=== PATIENT | female | born 1990 | race Caucasian/White ===

== ENCOUNTER → 2020-03-05 | Outpatient (CLI) | payer SELFPAY ==
[2020-03-11 00:41] LABS: HPV Reflexed? NOT INDICATED
== END | disposition home or self-care (01) ==
LOC: LABSPEC 13:44
PROVIDERS: Referring Provider Obstetrics & Gynecology; Visit Provider Obstetrics & Gynecology
DX: Z12.4 Encounter for screening for malignant neoplasm of cervix (principal)
CPT/HCPCS: 88175; G0145

== ENCOUNTER → 2021-07-29 | Outpatient (CLI) | payer SELFPAY ==
--- NOTE | 2021-07-29 11:45 | EMB_PTH ---
PATIENT: BAY BOURNE LOC: [facility] U#:[id number] AGE/SX: 31/F ROOM: RE07/29/[address]: Dr. Arik Roman MD : 1990 BED: DIS: 07/29/2021 SPEC #: [id number] RECD: 07/29/21 12:58 STATUS: ESPERANZA NIA #: [id number] MARIA ELENA: 07/29/21 11:[address]: Arik Roman DEPT: SURGICAL PATHOLOGY RECD BY: Keri Sun Tissues: Endometrium, NOS Procedures: Surgery Specimen Level IV HEADER OPERATION: Endometrial biopsy PRE-OP DIAGNOSIS: N92.4 TISSUE SUBMITTED: Endometrial biopsy MICROSCOPIC DIAGNOSIS Endometrial biopsy: Proliferative endometrium. WHIT:tammy 07/30/2021 MICROSCOPIC DESCRIPTION Slides are reviewed. GROSS DESCRIPTION Received in fixative is one container labeled with the patient's name and designated EM biopsy. The specimen consists of multiple irregular fragments of chen-pink soft tissue mixed with mucoid tissue that in aggregate measure 2.5 x 0.5 x 0.1 cm. The specimen is totally submitted in one cassette. / SJ:tammy 07/29/21 TC:4 CPT: 39760
[2021-08-05 16:15] LABS: HPV Reflexed? NOT INDICATED
== END | disposition home or self-care (01) ==
LOC: LABSPEC 12:45
PROVIDERS: Visit Provider Obstetrics & Gynecology
DX: N92.4 Excessive bleeding in the premenopausal period (principal); Z12.4 Encounter for screening for malignant neoplasm of cervix
CPT/HCPCS: 88175; 88305; G0145

== ENCOUNTER 2021-10-12 07:14 | Day surgery (SDC) | payer SELFPAY ==
[2021-10-07 13:45] LABS: Hematocrit 39.3 % (37-47); Mean Corp Hgb Conc 33.1 g/dL (32-36); Mean Corpuscular Hgb 29.3 pg (27.0-32.0); Mean Corpuscular Volume 88.7 fL (81-99); Mean Platelet Vol. 10.3 fl (6.2-12.0); Platelet Count 276 K/mm3 (150-450); RBC Distribution Width CV 12.7 % (11.6-14.6); RBC Distribution Width SD 41.6 fl (35.1-43.9); Red Blood Count 4.43 M/mm3 (4.2-5.4); White Blood Count 6.4 K/mm3 (4.4-11.0)
[2021-10-07 13:59] LABS: Partial Thromboplast Time 28.2 Seconds (24.1-36.2)
[2021-10-07 14:21] LABS: Thyroid Stim Hormone (TSH) 0.91 uIU/mL (0.358-3.74)
--- NOTE | 2021-10-10 07:59 | HP.PCM_ITS ---
History and Physical Date of Admission: 10/12/21 Surgical History and Physical Dora Crow, a 31 year old female 2 0 0 0 2, presents for HTA, Hysteroscopy and D and C on October 12, 2021. -- Heavy and Irregular Menses -- Dora presents as referral from Michelle Urena NP for history of Prolong Irregular Menses, and Hormonal changes. 30 y.o. G 2 P 2 non-smoker with history of Regular Menses(monthly) but being irregular with flow, as she will start a cycle, bleed x 5 - 7 days, stop for 3 days, then start back again for another 5 days or more. She states some days are heavy with need to change a tampon q 2 hours.U/S and EMBx OK. MEDICATIONS HISTORY: ALLERGIES: No Known Allergies Infections - Chicken pox Illnesses - no serious past illnesses Accidents - None Hospitalizations - see surgery Review of Systems: GENERAL - Denies fever, or chills SKIN - Denies skin changes EYES - Denies visual changes EARS - Denies difficulty hearing NOSE - Denies nasal congestion or bleeding MOUTH - Denies sore throat or difficulty swallowing NECK - Denies pain or swelling RESPIRATORY - Denies shortness of breath or wheezing CARDIOVASCULAR - Denies palpitations or chest pain GASTROINTESTINAL - Denies nausea, vomiting, diarrhea, constipation GENITOURINARY - Denies dysuria, frequency of urination, incontinence of urine MUSCULOSKELETAL - Denies joint or muscle pain NEUROLOGICAL - Denies localized numbness or weakness PSYCHIATRIC - Denies depression or anxiety ENDOCRINE - Denies heat or cold intolerance, weight loss or gain HEMATO-IMMUNOLOGIC - Denies excesive bleeding with cuts SOCIAL HISTORY: Alcohol Use - drinks occasionally Smoking - Never Diet - no special diet Lifestyle - moderate stress lifestyle and Exercise - active work Seat Belt Use - always Employer - Cleaning Job Description - cleaning Illicit Drug Use - None Sexual Activity - Hours Worked - 14 Spouse-Sig Other Name - Chao Crow . Spouse-Sig Other Occupation - [employer] Children Name(s) - 2 childrens Control - Prior Tubal FAMILY HISTORY: MENSTRUAL HISTORY: LMP Known?- DefiniteAmount/Duration - 7 to 10 days, Regularity - Irregular, Frequency - variable days, LMP - 10/02/21, Age Onset Menarche - 14 PAST PREGNANCIES: Total Pregnancies - 2; Full Term Pregnancies - 2; Premature - 0; Abortions, Induced - 0; Abortions, Spontaneous - 0; Ectopics - 0; Multiple Births - 0; Living Children - 2 SURGICAL HISTORY: 1. cholecystectomy, 2016 ; James Marx 2. 11/06/2014 ; Dr. Rodriguez 3. 03/11/2017 and Tubal ; Dr. Rodriguez PHYSICAL EXAM BP- 100/58 Sitting, Right arm, regular cuff Weight- 184.6 lbs Height- 62 inch BMI:33.8 CONSTITUTIONAL - NAD, well nourished, and well developed SKIN - No rash, lesions, or ulcers HEENT - Normocephalic, PERRLA, EOMI NECK - No nodes, no nuchal rigidity and thyroid normal size and texture LYMPH NODES - Palpation of lymph nodes in neck and groins within normal limits LUNGS - CTA x2 without wheezes, crackles or rales CARDIAC - Regular rate and rhythm without rubs, murmurs, or gallops ABDOMEN - Without hepatosplenomegaly, distention, masses, rebound, or guarding; normal bowel sounds; no hernias EXTREMITIES - No edema or calf tenderness NEUROLOGICAL - Cranial nerves II-XII grossly intact PSYCHIATRIC - A and O to time, place, person, mood and affect External Genitial Vagina - non-tender without lesions Urethra/Urethral Meatus - non-tender Bladder - non-tender Vagina - vaginal workman are pink and moist without loss of rugae and no evidence of atropy Cervix - without cervical motion tenderness and has normal size and features without evident lesions Uterus - 5-6 cm in size, mobile and nontender Adnexa - clear without massess or tenderness ASSESSMENT/PLAN: 1. Irregular Menstrual Cycle and Premenopausal Menorrhagia Likely from adenomyosis. Discussed options for treatment and pt stanislav res HTA. H/S and D and C. Discussed RBAs and all questions answered.
[2021-10-12] VITALS (7 sets, daily range): BP systolic 98–130; BP diastolic 59–91; PULSE 65–110; RESP 15–18; TEMP 36.2–36.7; O2SAT 98–100; BMI 33.0
--- NOTE | 2021-10-12 | EMB_PTH ---
PATIENT: BAY BOURNE LOC: [facility] – [place] U#:[id number] AGE/SX: 31/F ROOM: RE10/12/[address]: Dr. Arik Roamn MD : 1990 BED: DIS: 10/12/2021 SPEC #: [id number] RECD: 10/12/21 10:11 STATUS: ESPERANZA NIA #: [id number] MARIA ELENA: 10/12/21 00:[address]: Arik Roman DEPT: SURGICAL PATHOLOGY RECD BY: Deandre Ma ENTERED: 10/12/21 11:29 SP TYPE: ENDOM BX/C NELSON DR: Dr. Arik Pabon MD Tissues: Endometrium, NOS Procedures: Surgery Specimen Level IV HEADER OPERATION: Hysteroscopy, D & C hydroablation PRE-OP DIAGNOSIS: Irregular menstrual cycle and premenopausal menorrhagia TISSUE SUBMITTED: Endometrial curettings MICROSCOPIC DIAGNOSIS Endometrial curettings: Proliferative endometrium. SJ:tammy 10/13/2021 MICROSCOPIC DESCRIPTION Slides are reviewed. GROSS DESCRIPTION Received in fixative is one container labeled with the patient's name and designated endometrial curettings. The specimen consists of multiple fragments of hemorrhagic soft tissue that in aggregate measure 3 x 2.5 x 0.3 cm. The specimen is totally submitted in one cassette. / SJ:tammy 10/12/2021 TC:3 CPT: 62892
[2021-10-12] MEDS: Lactated Ringers 1,000 ML 15 ML IV (07:30)
[2021-10-12 08:07] LABS: Internal QC Validated? YES +Cl - CLEAR BKGD; Pregnancy, Urine Negative Negative
[2021-10-12] MEDS: Cefotetan 2 GM in 0.9% NS 100 ML IV (08:54)
[2021-10-12] MEDS: Oxytocin 10 UNITS/ML Vial (09:13)
--- NOTE | 2021-10-12 09:36 | OP.PCM_ITS ---
Report of Operation Date of Procedure: 10/12/21 Pre-Operative Diagnosis: Menorrhagia Post-Operative Diagnosis: Menorrhagia Surgery/Procedure Performed:: Diagnostic Hysteroscopy and Dilation and Curettage, Hydrothermal Ablation Description of Surgical Findings:: 8 cm endometrial cavity without polyps or fibroids present. Surgeon: Arik Roman Type of Anesthesia: General (LMA) Anesthesiologist: Belkis Isaac Specimen's removed: Endometrial curettings Estimated Blood Loss (mL): Minimal Fluids Replaced: Crystalloid Description of Procedure: Surgeon: Arik Roman MD, FACOG Indication: This is a 31 year old patient who has been having problems with extremely heavy menses. Conservative measures have not been helpful. Endometrial sampling was benign and pelvic ultrasound showed that ablation may be helpful. Pt has been counseled regarding the risks, benefits and alternatives of this procedure and all questions answered. She understands that only about half of patients will have amenorrhea after this procedure. Procedure: Patient taken to the operating room where after induction of general anesthesia the patient was prepped and draped in the usual sterile fashion. Bladder was drained of urine with a catheter. Anterior cervix grasped and cervix was dilated to about 17 Icelandic size. Hysteroscopic hydrothermal ablation (HTA) unit was place in the cervix and the above findings were noted. HTA unit was removed and the uterus was gently curretted removing all contents. An HTA ablation cycle was then carried out at about 90 degrees Centigrade for 10 minutes with virtually no fluid loss during the procedure. After an appropriate cool down the HTA unit was removed with minimal bleeding noted. The patient tolerated the procedure well and was taken to the recovery room in satisfactory condition. Sponge, instruments and needle counts were all correct. There were no apparent complications of the surgery. Cefotetan 2 gms IV was given prior to the procedure. Grafts/Implants Used: None Complications None Admit VTE Documentation VTE Present on Admission: Yes VTE Mechan Device Prophylaxis: SCD's
--- NOTE | 2021-10-12 09:38 | PCM.DC ---
Discharge Instructions Diet Discharge Diet: No restrictions Activity Discharge Activity: Return to Normal Activity, May Shower and May Take a Tub Bath May resume sexual activity in: 3 weeks Additional Activity Instructions:: Nothing in the vagina for 3-4 weeks please. Use Ibuprophen 800 mg orally every 8 hours as needed for pain. Can also add Tylenol 1000 mg every 8 hours if needed for pain. If Ibuprophen and Tylenol are not effective then use the Oxycodone but keep in mind it can cause serious constipation issues. Drink lots of water. Call if bleeding more than a pad per hour. Clear to brownish discharge will last for about 3 weeks. Dressing / Incision Call your doctor if you observe: Fever of 101 or Higher, Inability to urinate, Inability to have a bowel movement and Using more than 1 pad per hour Follow Up Care Please Follow Up With: Arik Roman MD When: 3 to 4 weeks Test Results: Test results from this visit will be discussed in further detail at your follow-up appointment, if applicable. Discharge Plan Admission Primary Reason for Your Visit: Endometrial Ablation Attending Provider: Arik Roman Primary Care Provider: Arik Pabon Discharge Orders/Prescriptions Prescriptions: New oxycodone 5 mg capsule 5 mg PO Q6H PRN (Reason: pain (scale score 7-10)) 7 Days Qty: 7 RF: 0 Continued magnesium 500 mg Tablet 15 mg PO DAILY RF: 0 vitamin B complex Tablet Extended Release 1 tab PO DAILY RF: 0 famotidine [Pepcid AC] 20 mg Tablet 20 mg PO DAILY RF: 0 zinc 25 mg Tablet 25 mg PO DAILY RF: 0 loratadine [Claritin] 10 mg Tablet 10 mg PO DAILY PRN (Reason: seasonal allergies) RF: 0 cholecalciferol (vitamin D3) [Vitamin D3] 125 mcg (5,000 unit) Tablet 125 mcg PO DAILY RF: 0 yxkdcmxv-fayhavypeb-cprx-hops 490 mg Capsule 3 cap PO DAILY RF: 0 Referrals / Follow Up: Arik Pabon MD [Primary Care Provider] - Disposition Disposition (needs filled in before D/C Order can be placed): Home, Self Care
[2021-10-12] MEDS: Acetaminophen 500 MG Tablet 1000 MG PO (10:39)
[2021-10-12] MEDS: Lactated Ringers 1,000 ML 100 ML IV (11:19)
[2021-10-12] MEDS: oxyCODONE 5 MG Tablet PO (12:11)
== END 2021-10-12 23:59 | disposition home or self-care (01) ==
LOC: SDC 07:20 → AC 07:21
PROVIDERS: Anesthesiology; PCP Family Medicine; Referring Provider Obstetrics & Gynecology; Visit Provider Obstetrics & Gynecology
PROC: 0U5B8ZZ Destruction of Endometrium, Via Natural or Artificial Opening Endoscopic (ICD-10-PCS; CPT 58563; principal; 2021-10-12 08:40)
DX: N92.0 Excessive and frequent menstruation with regular cycle (principal); N92.4 Excessive bleeding in the premenopausal period; K21.9 Gastro-esophageal reflux disease without esophagitis
CPT/HCPCS: 00940; 58558; 36415; 81025; 84443; 85027; 85610; 85730; 86850; 86900; 86901; 87426; 88305; C9803; J7120; J2405

== ENCOUNTER → 2022-09-08 | Outpatient (CLI) | payer SELFPAY ==
[2022-09-13 22:11] LABS: HPV APTIMA, High Risk Negative (Negative)
== END | disposition home or self-care (01) ==
LOC: WOBLAB 13:34
PROVIDERS: PCP Family Medicine; Visit Provider Obstetrics & Gynecology
DX: Z12.4 Encounter for screening for malignant neoplasm of cervix (principal)
CPT/HCPCS: 87624; 88175; G0145

== ENCOUNTER → 2023-12-08 | Outpatient (CLI) | payer SELFPAY | END | disposition home or self-care (01) | LOC: LABSPEC 11:53 | PROVIDERS: PCP Family Medicine; Referring Provider Nurse Practitioner Women's Health; Visit Provider Nurse Practitioner Women's Health | DX: N89.8 Other specified noninflammatory disorders of vagina (principal) | CPT/HCPCS: 87070; 87186; 87205 ==

== ENCOUNTER 2023-12-27 15:29 | Observation (INO) | payer SELFPAY ==
[2023-12-21 10:31] LABS: Absolute Lymphocyte Count 2.62 X10^3/uL (0.83-4.51); Absolute Neutrophil Count 4.1 X10^3/uL (2.0-7.7); Basophil# 0.03 X10^3/uL; Basophil% 0.4 % (0-1); Eosinophils% 1.4 % (0-5); Hematocrit 41.3 % (37-47); Hemoglobin 13.3 g/dL (12.0-15.0); Lymphocyte # 2.62 X10^3/ul (0.83-4.51); Lymphocyte % 35.9 % (19-41); Mean Corp Hgb Conc 32.2 g/dL (32-36); Mean Corpuscular Hgb 27.9 pg (27.0-32.0); Mean Corpuscular Volume 86.6 fL (81-99); Mean Platelet Vol. 10.4 fl (6.2-12.0); Monocyte# 0.41 X10^3/uL; Monocyte% 5.6 % (0-10); NRBC Flagged by Analyzer 0 % (0-5); Neutrophil # 4.13 X10^3/uL (2.7-7.7); Neutrophil % 56.6 % (47-70); Platelet Count 273 K/mm3 (150-450); RBC Distribution Width CV 13.2 % (11.6-14.6); RBC Distribution Width SD 41.4 fl (35.1-43.9); Red Blood Count 4.77 M/mm3 (4.2-5.4); White Blood Count 7.3 K/mm3 (4.4-11.0)
[2023-12-21 11:08] LABS: Magnesium 2.1 mg/dL (1.6-2.6)
[2023-12-21 11:17] LABS: Thyroid Stim Hormone (TSH) 0.88 uIU/mL (0.358-3.74)
[2023-12-27] VITALS (15 sets, daily range): BP systolic 91–126; BP diastolic 47–73; PULSE 56–85; RESP 15–16; TEMP 36.5–36.9; O2SAT 98–100; BMI 35.1
--- NOTE | 2023-12-27 08:48 | PCM.HP.BLA ---
History and Physical ntake Vital Signs 12/07/2409:40 12/08/2412:18 12/08/2412:20 Height 5 ft 2 in 5 ft 2 in 5 ft 2 in Weight: 192 lb 4 oz 193 lb BMI 35.2 35.3 BP 124/80 H 122/76 H Intake Visit Reasons: [facility] Maintenance Analyst Required: No Is patient in pain?: No Allergies No Known Allergies Allergy (Verified 12/09/23 13:19) Medications cholecalciferol (vitamin D3) 125 mcg (5,000 unit) tablet (Vitamin D3) 125 mcg PO DAILY 10/05/21 [History Confirmed 12/09/23] collagen-hyaluronic ctbb-xzmgxdkwyl-ytbd extract 490 mg capsule 3 cap PO DAILY 10/05/21 [History Confirmed 12/09/23] famotidine 20 mg tablet (Pepcid AC) 20 mg PO DAILY 10/05/21 [History Confirmed 12/09/23] loratadine 10 mg tablet (Claritin) 10 mg PO DAILY PRN seasonal allergies 10/05/21 [History Confirmed 12/09/23] magnesium 500 mg tablet 15 mg PO DAILY 10/05/21 [History Confirmed 12/09/23] vitamin B complex 1 tab PO DAILY 10/05/21 [History Confirmed 12/09/23] zinc 25 mg tablet 25 mg PO DAILY 10/05/21 [History Confirmed 12/09/23] Post menopausal: No Patient : No : No [facility] Medical History Gastric reflux Non-smoker Seasonal allergies Shortness of breath on exertion Wears glasses Surgical History History of History of cholecystectomy S/P endometrial ablation Social History household members: spouse number of children: 2 current occupation: [employer] Smoking Status: Never smoker alcohol intake: never substance use type: does not use seatbelt use: always do you feel safe at home: Yes additional social history: - ChaoDonovan Landry benavides [facility] Details: BAY BOURNE is a 33 year old who presents for consultation. she has tried metformin and ocp prior ot an ablation, then had an ablation 2 years ago, she has had recurrent bleeding and pain. she denies any pelvic pain or pressure, dyspareunia. cycles are eveyr 28-30 and lasting a week increasing in amount again. nl thyroid testing in the past. declines EMB today. US done at PCP office. referral from [facility]. Female Reproductive History Menopausal Symptoms: No night sweats History 2 Elective abortions Hx Para 2 Spontaneous abortions Hx # Term Pregnancies Ectopic pregnancies Hx # Pregnancies Multiple births # of living children 2 Past Pregnancies Del. Date Name GA/Weeks Outcome Route Bth Weight Gen Labor Lgth Anesthesia Del Locatn Provider FOB Unknown Ramírez 2014 Unknown Michael 2016 ROS Const Constitutional: Denies fatigue, night sweats, weight gain or weight loss ENT ENT: Reports system reviewed and no additional complaints, except as documented Cardio Card: Denies chest pain Resp Resp: Denies cough or dyspnea GI GI: Reports as per HPI; Denies abdominal pain, constipation, nausea or vomiting : Denies nipple discharge, urinary frequency, urinary incontinence, urinary hesitancy, urinary urgency, vaginal discharge, vaginal dryness, vaginal odor or vaginal pruritus Musc Musc: Denies arthralgias, back pain or muscle weakness Skin Skin/Breast: Denies alopecia, change in hair, dry skin, breast mass, breast pain, breast skin changes or nipple discharge Neuro Neuro: Reports system reviewed and no additional complaints, except as documented Psych Psych: Reports system reviewed and no additional complaints, except as documented Endo Endo: Denies cold intolerance, excessive sweating, heat intolerance or polydipsia Will/Lymph Hematologic/Lymphatic: Denies easy bleeding, Denies easy bruising and Denies lymphadenopathy Exam Const General: cooperative, healthy appearing, comfortable and no acute distress Orientation: alert [facility] Head: normal to inspection and normocephalic Ears: hearing grossly normal bilaterally and external ears normal Nose: external nose normal and nares normal Face and sinus: normal facial exam Neck Neck: normal visual inspection and no lymphadenopathy Thyroid: thyroid normal Chest Chest palpation & inspection: normal inspection of the chest Resp Effort & Inspection: normal respiratory effort Auscultation: clear to auscultation bilaterally Cardio Rate: regular rate Rhythm: regular rhythm Heart Sounds: S1 normal and S2 normal GI Inspection: normal to inspection and non-distended Palpation: soft and no hepatosplenomegaly Musc Other: gross motor intact no deficits, full bilateral strength Skin General: no rashes or lesions noted Neuro General: patient alert, patient awake, moves all extremities and no focal motor deficits Motor: muscle tone normal throughout Extrem General: normal to inspection and no pedal edema Psych Appearance: grossly normal Mental Status: mental status grossly normal Affect: normal affect Speech and Movement: speech and movement normal Coding Level of Care Code Off vis,est,level 4 Diagnoses Abnormal uterine bleeding (AUB) N93.9 Assessment and Plan Assessment and Plan (1) Abnormal uterine bleeding (AUB): Status: Acute Comment: failed OCP, IUD and ablation. Plan LAVHBS declined EMB. Orders: Orders CBC-Complete Blood Cnt No Diff Today N93.9 - Abnormal uterine and vaginal bleeding, unspecified Thyroid Stim Hormone (TSH) Today N93.9 - Abnormal uterine and vaginal bleeding, unspecified Type & Screen - PAT ONLY Today N93.9 - Abnormal uterine and vaginal bleeding, unspecified Plan After discussing the patient's diagnosis and treatment plan options, patient wishes to proceed with surgical management. I have discussed with the patient the risks, benefits, and alternatives of the procedure which include but are not limited to risks of anesthesia, bleeding, infection, possible damage to bowel, bladder, or surrounding vasculature which could lead to additional surgery to evaluate any complications. Patient agrees to procedure and wishes to proceed. ACOG/uptodate references given for additional information regarding procedure. UPDATE- I have seen the patient and performed any clinically relevant updates to the history and physical exam. Brooke Walters MD
[2023-12-27 11:09] LABS: Internal QC Validated? YES +Cl - CLEAR BKGD; Pregnancy, Urine Negative Negative
[2023-12-27] MEDS: Magnesium 1 GM over 15 mins IV (11:18)
[2023-12-27] MEDS: Lactated Ringers 1,000 ML 40 ML IV (11:18)
[2023-12-27] MEDS: Enoxaparin 40 MG/0.4 ML Syringe SC (11:20)
[2023-12-27] MEDS: Scopolamine 1mg/72hr Patch 1 PATCH TD (11:20)
[2023-12-27] MEDS: Acetaminophen 500 MG Tablet 1000 MG PO ×2 (11:21→16:52)
[2023-12-27] MEDS: Phenazopyridine 95 MG Tablet 190 MG PO (11:21)
[2023-12-27] MEDS: Gabapentin 600 MG Tablet PO (11:22)
[2023-12-27] MEDS: dexAMETHasone 4 MG/ML Vial 8 MG IV (11:22)
[2023-12-27] MEDS: Celecoxib 200 MG Capsule 400 MG PO (11:22)
[2023-12-27 11:52] LABS: Bedside Glucose 77 mg/dL (74-106)
[2023-12-27] MEDS: Cefazolin 2 GM in 0.9% Normal Saline (100mL Bag) 100 ML IV (12:31)
--- NOTE | 2023-12-27 12:50 | HYST_PTH ---
PATIENT: BAY BOURNE LOC: [facility] U#:[id number] AGE/SX: 33/F ROOM: MS313 RE12/27/[address]: Dr. Brooke Walters MD : 1990 BED: 1 DIS: 12/28/2023 SPEC #: [id number] RECD: 12/27/23 16:02 STATUS: ESPERANZA KRAMER #: [id number] MARIA ELENA: 12/27/23 12:[address]: Brooke Walters DEPT: SURGICAL PATHOLOGY RECD BY: Keri Sun ENTERED: 12/28/23 09:49 SP TYPE: HYSTERECT OTHR DR: Dr. Arik Pabon MD Tissues: Uterus, NOS Procedures: Surgery Specimen Level V HEADER OPERATION: ERAS, hysterectomy, LAVH, bilateral salpingectomy PRE-OP DIAGNOSIS: Abnormal uterine bleeding TISSUE SUBMITTED: Uterus, cervix, bilateral fallopian tubes MICROSCOPIC DIAGNOSIS Uterus, hysterectomy: Cervix - Squamous metaplasia and mild chronic inflammation. Endometrium - Inactive endometrium with denudation. Myometrium - Focal superficial adenomyosis. Right fallopian tube- Benign paratubal cyst. Left fallopian tube- No pathologic change. AM/ 12/29/23 MICROSCOPIC DESCRIPTION Slides are reviewed. GROSS DESCRIPTION Received in fixative is one container labeled with the patient's name and designated uterus. The specimen consists of a uterus with attached cervix and attached right fallopian tube and detached left fallopian tube. The uterus with cervix measures 9.0 x 6.5 x 4.0 cm and weighs 82 gm. The ectocervix is unremarkable. The cervical os is oval in contour. The endocervical canal measures 3.4 cm in length and is grossly unremarkable. The elongated endometrial cavity measures 3.0 x 1.0 cm. The reddish-chen velvety endometrium measures up to 0.1 cm in thickness. The myometrium measures 2.0 cm in average thickness and is free of mass lesions. The right fallopian tube measures 6.0cm in length and 0.8cm in diameter. The Filshie clip is present and intact. The left fallopian tube measures 3.8cm in length and 0.7cm in diameter. A Filshie clip is attached to the uterus and is intact. Coffee Shop Attendant sections are submitted in 8 cassettes as follows: 1 - anterior cervix, 2 - posterior cervix, 3 & 4 - anterior uterine wall, 5 & 6 - posterior uterine wall, 7 - right fallopian tube, 8 - left fallopian tube. / AM: 12/28/23 TC:5 CPT: 22643
[2023-12-27] MEDS: Vasopressin 20 UNITS/ML Vial (13:46)
[2023-12-27] MEDS: Ondansetron 4 MG/2 ML Vial IV (13:53)
[2023-12-27] MEDS: Bupivacaine 0.25% 30 ML Vial (14:38)
--- NOTE | 2023-12-27 14:38 | OP.PCM_ITS ---
Problems Associated Problem List Diagnoses (1) Abnormal uterine bleeding (AUB): Report of Operation Date of Procedure: 12/27/23 Pre-Operative Diagnosis: see A/P Post-Operative Diagnosis: same Surgery/Procedure Performed:: LAVHBS Description of Surgical Findings:: adenomyosis appearing uterus with boggy appearance, polycystic appearing left ovary Surgeon: Brooke Walters livestock sales representative: Marquis Tellez Type of Anesthesia: General Specimen's removed: uterus, tubes Drains: daniels Estimated Blood Loss (mL): 250 Fluids Replaced: crystalloid Description of Procedure: Patient received preoperative antibiotics and SCDs were on preoperatively. Patient was taken back to the operating room and placed in the dorsal lithotomy position. General anesthesia was induced and patient was prepped and draped in normal sterile fashion. Uterine manipulator was placed inside the uterus and Daniels catheter placed in the bladder. The umbilicus was grasped with towel clamps and an intraumbilical incision was made after injecting with quarter percent Marcaine and a Veress needle entered into the abdomen confirmed to be intra-abdominal with a low opening pressure. Abdomen was insufflated with CO2 gas and the Veress needle removed and the 5 mm trocar was placed under direct visualization without complication. Right and left lower quadrants were transilluminated and injected with quarter percent Marcaine and 5 mm ports placed under direct visualization. Pelvis was well visualized see operative findings for additional information. Bilateral fallopian tubes were identified and transected with the LigaSure device across the mesosalpinx to the level of the utero-ovarian ligament which was also transected with the LigaSure device. The broad ligament was opened up by transecting the round ligament bilaterally and skeletonizing the uterine vessels bilaterally and creating a bladder flap using the LigaSure device. The uterine arteries were transected bilaterally with good visualization of the bladder and the ureters were seen to be inferior lateral to the operative area. Attention was then paid to the vaginal portion of the procedure and the cervix was grasped with Loni clamps and circumferentially injected with dilute vasopressin. A circumferential incision was made and the vaginal mucosa was mobilized off posteriorly and the cul-de-sac entered into sharply and a longneck speculum placed. The anterior cul-de-sac was then identified and entered into sharply. The uterosacral ligaments were clamped cut and suture ligated with 0 Monocryl bilaterally followed by the cardinal ligaments which were clamped cut and suture ligated bilaterally with 0 Monocryl. The uterus serially descended and was removed without difficulty. Pelvic sidewall pedicles were checked and noted to have excellent hemostasis. The vaginal mucosa was reapproximated incorporating the posterior peritoneum. This was reapproximated using 0 Vicryl eaherg-zi-ukgac sutures. Excellent hemostasis was noted. The pelvis and cul-de-sac were well visualized and no significant active bleeding noted but some raw areas were seen on the peritoneum and therefore floseal was applied. Pressure was taken down and the areas visualized and noted of excellent hemostasis. All ports were removed under direct visualization without complication and the abdomen was desufflated of air. The instruments were removed from the abdomen and the vaginal sweep was negative. Port sites on the abdomen were closed with 4-0 Monocryl interrupted sutures and Steri's and windows were applied. She was awoken and taken recovery in stable condition. Grafts/Implants Used: none Procedure Start Time: 13:04 Procedure Stop Time: 14:39 Complications none Admit VTE Documentation VTE Present on Admission: No VTE Mechan Device Prophylaxis: SCD's VTE Pharm Prophylaxis ordered?: Yes Procedures Urinary/Genital 52xxx-59xxx: [id number] LAVH+BS/O <250gr Uterus
--- NOTE | 2023-12-27 15:19 | DCINST_ITS ---
Discharge Instructions Diet Discharge Diet: No restrictions Activity May resume sexual activity in: 6 weeks Weight Bearing Status: Full weight bearing Dressing / Incision Call your doctor if your incision/area has: Continuous Slow Oozing, Sudden Increased Bleeding, Increased Pain/ Swelling, Increased Redness and Foul Smelling Discharge Call your doctor if you observe: Fever of 101 or Higher, Using more than 1 pad per hour, Shortness of breath, Chest pain and Uncontrolled pain Suture Line Care: Avoid Pulling/Pushing and Avoid Pinching/Bending Remove Dressing in: 1 week (if present) Cleanse incision/area with: Soap & Water and Keep Dressing Clean & Dry Follow Up Care Please Follow Up With: Brooke Walters MD When: Call to make an appointment with your doctor for a postop visit in 2 and 6 weeks. Test Results: Test results from this visit will be discussed in further detail at your follow- up appointment, if applicable. Discharge Plan Admission Attending Provider: Brooke Walters Primary Care Provider: Arik Pabon Discharge Orders/Prescriptions Prescriptions: New oxycodone-acetaminophen [Percocet] 5-325 mg tablet 1 tab PO Q6H PRN (Reason: pain) 7 Days Qty: 20 0RF naproxen [naproxen] 500 mg tablet 500 mg PO BID PRN PRN (Reason: Pain) Qty: 30 1RF No Action magnesium 500 mg Tablet 15 mg PO DAILY vitamin B complex Tablet Extended Release 1 tab PO DAILY famotidine [Pepcid AC] 20 mg Tablet 40 mg PO DAILY zinc 25 mg Tablet 25 mg PO DAILY loratadine [Claritin] 10 mg Tablet 10 mg PO DAILY PRN (Reason: seasonal allergies) cholecalciferol (vitamin D3) [Vitamin D3] 125 mcg (5,000 unit) Tablet 125 mcg PO DAILY Referrals / Follow Up: Arik Pabon MD [Primary Care Provider] - Disposition Disposition (needs filled in before D/C Order can be placed): Home, Self Care
[2023-12-27] MEDS: Lactated Ringers 1,000 ML 70 ML IV (16:48)
[2023-12-27] MEDS: Ketorolac 30 MG/ML Syringe IV (16:50)
[2023-12-27] MEDS: Ondansetron ODT 4 MG Tablet PO (20:08)
[2023-12-27] MEDS: oxyCODONE 5 MG Tablet PO (20:08)
[2023-12-27] MEDS: Docusate Sodium 100 MG Capsule PO (22:53)
[2023-12-28] MEDS: Ketorolac 30 MG/ML Syringe IV ×2 (00:14→05:57)
[2023-12-28] MEDS: Acetaminophen 500 MG Tablet 1000 MG PO ×2 (00:15→05:58)
[2023-12-28 03:00] VITALS: RESP 15
[2023-12-28 04:05] VITALS: BP 104/61; PULSE 54; RESP 15; TEMP 36.8; O2SAT 98
[2023-12-28 06:23] LABS: Hematocrit 36.4 % (37-47); Hemoglobin 11.7 g/dL (12.0-15.0); Mean Corp Hgb Conc 32.1 g/dL (32-36); Mean Corpuscular Hgb 28.1 pg (27.0-32.0); Mean Corpuscular Volume 87.5 fL (81-99); Mean Platelet Vol. 10.6 fl (6.2-12.0); Platelet Count 246 K/mm3 (150-450); RBC Distribution Width CV 13.2 % (11.6-14.6); RBC Distribution Width SD 42.2 fl (35.1-43.9); Red Blood Count 4.16 M/mm3 (4.2-5.4); White Blood Count 13.5 K/mm3 (4.4-11.0)
--- NOTE | 2023-12-28 08:09 | PCM.PN.OB ---
Subjective Subjective patient recovering well, denies CP, SOB, N, or V. patient is ambulating, voiding ,tolerating adequate po, and pain is controlled with oral medications. Objective Data Objective Data Vital Signs: Vital Signs Temp Pulse Resp BP Pulse Ox O2 Del Method O2 Flow Rate 98.2 F 54 L 15 104/61 98 Room Air 4 12/28/23 04:05 12/28/23 04:05 12/28/23 04:05 12/28/23 04:05 12/28/23 04:05 12/28/23 04:05 12/27/23 17:03 Oxygen Flow Rate (L/min) 4 Oxygen Delivery Method Room Air Weight: 192 lb Body Mass Index (BMI) 35.1 Intake & Output: Intake and Output for Last 24 Hours 12/26/23 12/27/23 12/28/23 23:59 23:59 23:59 Intake Total 685.33 / 885.33 400 / 400 Output Total 1300 / 1300 500 / 500 Balance -614.67 / -414.67 -100 / -100 Lab / Micro Data 12/28/23 05:35 Labs: Laboratory Results - last 24 hr 12/27/23 10:44: Urine Test Negative 12/27/23 11:10: POC Glucose 77 12/28/23 05:35: WBC 13.5 H, RBC 4.16 L, Hgb 11.7 L, Hct 36.4 L, MCV 87.5, MCH 28.1, MCHC 32.1, RDW Std Deviation 42.2, RDW Coeff of Rhett 13.2, Plt Count 246, MPV 10.6 Physical Exam Const alert, oriented x3 and no apparent distress Resp normal respiratory effort GI soft to palpation and non-distended Inspection: incision other (dressing dry and intact) Narrative: Minimal drainage on peripad Bladder / Kidney Exam: catheter in place Assessment & Plan (1) S/P laparoscopic assisted vaginal hysterectomy (LAVH): COMMENT: lavh bs for AUB PLAN: Plan patient is s/p 1 POD 1 1. routine ERAS protocol postop care- increase ambulation, encourage oral intake and oral control of pain. lovenox and scds for dvt prophylaxis, patient stable for discharge to home.
[2023-12-28 08:46] VITALS: BP 95/57; PULSE 55; RESP 18; TEMP 37.1; O2SAT 98
[2023-12-28] MEDS: Docusate Sodium 100 MG Capsule PO (08:53)
[2023-12-28] MEDS: Enoxaparin 40 MG/0.4 ML Syringe SC (08:53)
--- NOTE | 2023-12-28 09:51 | CASEMGMT ---
RN CM NOTE: Pt being discharged. RN CM to room. Introduced self and role. Pt denies having any discharge needs/concerns. Radha MENCHACAN RN CM
--- NOTE | 2023-12-28 10:54 | PHA.DC.MR.R ---
Pharmacy CT Med Reconciliation Pharmacy Service has performed discharge medication reconciliation for this patient. Medication education papers prepared, patient discharged when counseling was attempted. The patient's discharge medication list was reviewed for discrepancies and discrepancies were resolved. Medications at Discharge Home Medications cholecalciferol (vitamin D3) 125 mcg (5,000 unit) tablet (Vitamin D3) 125 mcg PO DAILY 10/05/21 famotidine 20 mg tablet (Pepcid AC) 40 mg PO DAILY 10/05/21 loratadine 10 mg tablet (Claritin) 10 mg PO DAILY PRN seasonal allergies 10/05/21 magnesium 500 mg tablet 15 mg PO DAILY 10/05/21 vitamin B complex 1 tab PO DAILY 10/05/21 zinc 25 mg tablet 25 mg PO DAILY 10/05/21 naproxen 500 mg tablet 500 mg PO BID PRN PRN Pain #30 tabs 12/27/23 oxycodone-acetaminophen 5 mg-325 mg tablet (Percocet) 1 tab PO Q6H PRN pain 7 days #20 tabs 12/27/23
== END 2023-12-28 10:11 | disposition home or self-care (01) ==
LOC: SDC 16:08 → MS3 16:08
PROVIDERS: Anesthesiology; Admitting Provider Obstetrics & Gynecology; PCP Family Medicine; Referring Provider Obstetrics & Gynecology; Visit Provider Obstetrics & Gynecology
PROC: 0UT9FZZ Resection of Uterus, Via Natural or Artificial Opening With Percutaneous Endoscopic Assistance (ICD-10-PCS; CPT 58552; principal; 2023-12-27 12:25)
DX: N87.9 Dysplasia of cervix uteri, unspecified (principal); K21.9 Gastro-esophageal reflux disease without esophagitis; R06.02 Shortness of breath; Z79.899 Other long term (current) drug therapy; N93.9 Abnormal uterine and vaginal bleeding, unspecified; K76.0 Fatty (change of) liver, not elsewhere classified
CPT/HCPCS: 58552; 00944; 36415; 81025; 82962; 83735; 84443; 85025; 85027; 86850; 86900; 86901; 88307; 94668; 96372; 96374; 96376; 99221; J7120; G0378; J2405; J3475